=== PATIENT | female | born 1975 | race African-American/Black ===

== ENCOUNTER 2017-01-26 10:25 | Outpatient (CLI) | payer OTHER ==
--- NOTE | 2017-01-26 15:58 | Mammography Report ---
BILATERAL DIGITAL AUGMENTED SCREENING MAMMOGRAM with CAD: 01/26/17 10:25:00 CLINICAL: Routine screening. COMPARISON:01/19/16 FINDINGS: Screening views with and without implant displacement demonstrate heterogeneously densedense breasts, which may obscure small masses. A left asymmetry with architectural distortion on the implant displaced CC view requires additional imaging. The right breast is negative. Intact subpectoral implants. IMPRESSION: Left asymmetry and architectural distortion requiring additional imaging. BI-RADS CATEGORY: 0 -- Needs Additional Imaging RECOMMENDATION: Recall for left implant displaced spot compression views and left breast ultrasound if needed. ACR BI-RADS MAMMOGRAPHIC CODES: 0 = Needs additional imaging evaluation; 1 = Negative; 2 = Benign; 3 = Probably benign; 4 = Suspicious; 5 = Malignant; 6 = Known biopsy-proven malignancy COMMENT: 1. Dense breast tissue, i.e., adenosis, fibrocystic changes, etc., may obscure an underlying neoplasm. 2. Approximately 10% of cancers are not detected with mammography. 3. A negative mammography report should not delay biopsy if a clinically suspicious mass is present. COMMENT: Patient follow-up letters are generated via our [employer] application.
== END 2017-01-26 10:26 | disposition home or self-care (01) ==
LOC: SPVWC 10:25
PROVIDERS: ATTEND Family Medicine
DX: Z12.31 Encounter for screening mammogram for malignant neoplasm of breast (principal)
CPT/HCPCS: 77067; G0202

== ENCOUNTER 2017-02-08 08:52 | Outpatient (CLI) | payer OTHER ==
--- NOTE | 2017-02-08 14:09 | Mammography Report ---
Diagnostic left mammogram and targeted left breast ultrasound. History: Recall. Findings: Spot compression images and 90degree view of the left breast demonstrate no evidence of residual density or parenchymal asymmetry although the parenchyma is quite dense. Sonographic evaluation of the medial half of the left breast demonstrates a 3 mm cyst at the 6 clock position, 5 cm from the nipple. No other significant findings are seen. Impression: 3 mm cyst at the 6 clock position of the left breast. BI-RADS code: 2. Recommendation: Annual screening.
== END 2017-02-08 08:53 | disposition home or self-care (01) ==
LOC: SPVWC 08:52
PROVIDERS: ATTEND Family Medicine
DX: N60.02 Solitary cyst of left breast (principal)
CPT/HCPCS: 76642; G0206